=== PATIENT | female | born 1965 | race Two or more races ===

== ENCOUNTER 2016-10-07 12:54 | Day surgery (SDC) | payer OTHER ==
[2016-10-07] MEDS ORDERED: LACTATED RINGERS 0 ML ONE (13:01)
[2016-10-07] MEDS ORDERED: IV START KIT ONE (13:07)
[2016-10-07] MEDS ORDERED: LIDOCAINE 1% 2 ML VIAL ID PRN (13:22)
[2016-10-07] MEDS ORDERED: ONDANSETRON 4 MG/2ML 2 ML VIAL IV PRN (13:22)
[2016-10-07] MEDS ORDERED: LACTATED RINGERS 1,000 ML IV SCH (13:22)
[2016-10-07] MEDS ORDERED: MIDAZOLAM HCL 1 MG/ML 2ML VIAL ONE (15:01)
[2016-10-07] MEDS ORDERED: PROPOFOL 20 ML IV ONE (15:01)
== END 2016-10-07 16:35 | disposition home or self-care (01) ==
LOC: SDC 12:54
PROVIDERS: ATTEND Surgery
PROC: 0DJD8ZZ Inspection of Lower Intestinal Tract, Via Natural or Artificial Opening Endoscopic (ICD-10-PCS; principal; 2016-10-07)
DX: Z12.11 Encounter for screening for malignant neoplasm of colon (principal); F41.9 Anxiety disorder, unspecified; N94.10 Unspecified dyspareunia; N83.9 Noninflammatory disorder of ovary, fallopian tube and broad ligament, unspecified; G47.09 Other insomnia; Z88.0 Allergy status to penicillin; Z88.2 Allergy status to sulfonamides